=== PATIENT | male | born 1950 | race Caucasian/White ===

== ENCOUNTER 2021-05-12 04:34 | Day surgery (SDC) | payer OTHER, BC ==
[2021-05-11 08:53] VITALS: BMI 33.0
[2021-05-12 08:20] VITALS: TEMP 98
[2021-05-12 09:04] VITALS: BP 142/76; PULSE 67
== END 2021-05-12 09:11 | disposition home or self-care (01) ==
LOC: JASU-ENDO 04:34
PROVIDERS: ATTEND Internal Medicine Gastroenterology
PROC: 0DBL8ZX Excision of Transverse Colon, Via Natural or Artificial Opening Endoscopic, Diagnostic (ICD-10-PCS; 2021-05-12)
PROC: 0DBH8ZX Excision of Cecum, Via Natural or Artificial Opening Endoscopic, Diagnostic (ICD-10-PCS; principal; 2021-05-12 08:00)
DX: Z12.11 Encounter for screening for malignant neoplasm of colon (principal); K57.30 Diverticulosis of large intestine without perforation or abscess without bleeding; D12.0 Benign neoplasm of cecum; D12.3 Benign neoplasm of transverse colon; E11.9 Type 2 diabetes mellitus without complications
CPT/HCPCS: 82962; 88305-TC

== ENCOUNTER 2024-07-24 04:22 | Day surgery (SDC) | payer OTHER, BC ==
[2024-07-23 08:58] VITALS: BMI 33.2
[2024-07-24 09:04] VITALS: TEMP 97.5
[2024-07-24 09:39] VITALS: BP 153/71; PULSE 68; RESP 16
== END 2024-07-24 10:00 | disposition home or self-care (01) ==
LOC: JASU-ENDO 04:22
PROVIDERS: ATTEND Internal Medicine Gastroenterology
PROC: 0DBL8ZX Excision of Transverse Colon, Via Natural or Artificial Opening Endoscopic, Diagnostic (ICD-10-PCS; 2024-07-24)
PROC: 0DBH8ZX Excision of Cecum, Via Natural or Artificial Opening Endoscopic, Diagnostic (ICD-10-PCS; 2024-07-24)
PROC: 3E0H8KZ Introduction of Other Diagnostic Substance into Lower GI, Via Natural or Artificial Opening Endoscopic (ICD-10-PCS; principal; 2024-07-24 08:30)
DX: Z12.11 Encounter for screening for malignant neoplasm of colon (principal); D12.3 Benign neoplasm of transverse colon; D12.0 Benign neoplasm of cecum; D37.4 Neoplasm of uncertain behavior of colon; Z86.010 Personal history of colon polyps; E11.9 Type 2 diabetes mellitus without complications; Z79.84 Long term (current) use of oral hypoglycemic drugs
CPT/HCPCS: 88305-TC

== ENCOUNTER 2024-09-02 04:09 | Inpatient (IN) | payer OTHER, BC ==
[2024-09-01 09:29] VITALS: BMI 30.8
[2024-09-02] MEDS ORDERED: cefOXitin SODIUM 2 GM VIAL (RESTRICTED TO ID) IVPB ONE ×2 (09:24→18:24)
[2024-09-02] MEDS ORDERED: BUPIVACAINE HCL/PF 0.25% (2.5MG/ML) 10 ML VIAL ONE (09:24)
[2024-09-02] MEDS ORDERED: DEXAMETHASONE SOD PHOSPHATE 4 MG/1 ML VIAL ONE (10:52)
[2024-09-02] MEDS: cefOXitin SODIUM 1 GM VIAL (RESTRICTED TO ID) IVPB ONE (10:55)
[2024-09-02] MEDS: BUPIVACAINE HCL/PF 2.5 MG/ML - 30 ML VIAL IJ ONE ×2 (11:00)
[2024-09-02] MEDS ORDERED: ROCURONIUM BROMIDE 50 MG/5 ML SYRINGE ONE (12:10)
[2024-09-02] MEDS ORDERED: ONDANSETRON 4 MG/2 ML VIAL IVPUSH PRN (14:13)
[2024-09-02] MEDS ORDERED: PROMETHAZINE HCL 25 MG/1 ML VIAL IVPB PRN (14:13)
[2024-09-02] MEDS ORDERED: HYDROmorphone HCl 2 MG/ML VIAL ONE (14:24)
[2024-09-02] MEDS ORDERED: ONDANSETRON 4 MG/2 ML VIAL ONE (15:59)
[2024-09-02] MEDS ORDERED: KETOROLAC TROMETHAMINE 30 MG/1 ML VIAL ONE (15:59)
[2024-09-02] MEDS ORDERED: ACETAMINOPHEN INJECTION 100 ML ONE (17:01)
[2024-09-02] MEDS: ACETAMINOPHEN 1000 MG/100 ML BAG IVPB ONE ×2 (17:14→20:39)
[2024-09-02] MEDS: CEFOXITIN SODIUM 2 GM in DEXTROSE 5%-WATER 100 ML IVPB SCH (18:52)
[2024-09-02] MEDS: LACTATED RINGERS SOLUTION 1,000 ML IV SCH (18:58)
[2024-09-02] MEDS: HEPARIN NA (PORCINE) 5,000 UNITS/ML 1ML VIAL SQ ONE (20:39)
[2024-09-02] MEDS: CEFOXITIN SODIUM 2 GM in DEXTROSE 5%-WATER - 100 ML IVPB ONE (20:39)
[2024-09-02] MEDS: ATORVASTATIN CA 10 MG TABLET (FP) PO SCH (21:20)
[2024-09-02] MEDS: PNEUMOC 20-VAL CONJ-DIP CRM/PF 0.5 ML SYRINGE IM ONE (21:20)
[2024-09-02] MEDS: ACETAMINOPHEN 1000 MG/100 ML BAG IVPB SCH (22:03)
[2024-09-02] MEDS: MELATONIN 5 MG TABLETS PO ONE (22:04)
[2024-09-03] MEDS: KETOROLAC TROMETHAMINE 30 MG/1 ML VIAL IVPUSH PRN (01:09)
[2024-09-03 02:31] VITALS: RESP 18
[2024-09-03] MEDS: sitaGLIPtin PHOSPHATE 50 MG TABLET PO SCH (06:09)
[2024-09-03] MEDS: metFORMIN HCL 500 MG TABLET (FP) PO SCH (06:10)
[2024-09-03] MEDS: LISINOPRIL 10 MG TABLET PO SCH (09:34)
[2024-09-03] MEDS: CHOLECALCIFEROL (VIT D3) 400 UNIT (10 MCG) TABLET PO SCH (09:34)
[2024-09-03] MEDS: ENOXAPARIN NA (PORCINE) 40 MG/0.4 ML DISP.SYRIN SQ SCH (09:34)
[2024-09-03 09:51] LABS: BASO % 0.9 % (0-2.0); EOS % 0.2 % (0-4.5); HEMATOCRIT 37.3 % (35.4-49); HEMOGLOBIN 12.8 GM/dL (11.7-16.9); LYMPH % 6.9 % (8-40); MCH 32.5 pg (25.7-33.7); MCHC 34.3 g/dl (32.0-35.9); MEAN CELL VOLUME 94.8 fl (80-96); MEAN PLT VOLUME 9.6 fl (7.5-11.1); PLATELET COUNT 169 10^3/uL (134-434); RBC 3.94 M/mm3 (4.00-5.60); RDW 13.5 % (11.9-15.9); WHITE BLOOD COUNT 9.8 K/mm3 (4.0-10.0)
[2024-09-03 10:13] LABS: POTASSIUM 4.1 mmol/L (3.5-5.1)
[2024-09-03 10:16] LABS: CALCIUM 8.5 mg/dL (8.5-10.1)
[2024-09-03 10:17] LABS: BLOOD UREA NITROGEN 21.1 mg/dL (7-18)
[2024-09-03 10:20] LABS: CREATININE 1.4 mg/dL (0.55-1.3)
[2024-09-03] MEDS: INSULIN ASPART SLIDING SCALE (NOVOLOG) 1 VIAL SQ SCH (12:07)
[2024-09-03] MEDS: ONDANSETRON 4 MG/2 ML VIAL IVPB PRN (15:54)
[2024-09-03] MEDS: METOCLOPRAMIDE HCL INJECTION 10 MG/2 ML VIAL IVPUSH ONE (18:27)
[2024-09-03] MEDS: MELATONIN 5 MG TABLETS PO PRN (22:29)
[2024-09-04] MEDS: ICOSAPENT ETHYL 0.5 GM PO SCH (04:49)
[2024-09-04] MEDS: oxyCODONE HCL 5 MG TABLET PO PRN ×2 (06:42→21:56)
[2024-09-04 09:31] LABS: BASO % 0.6 % (0-2.0); EOS % 1.8 % (0-4.5); HEMATOCRIT 40.8 % (35.4-49); HEMOGLOBIN 13.6 GM/dL (11.7-16.9); LYMPH % 7.8 % (8-40); MCH 31.5 pg (25.7-33.7); MCHC 33.3 g/dl (32.0-35.9); MEAN CELL VOLUME 94.7 fl (80-96); MEAN PLT VOLUME 9.3 fl (7.5-11.1); MONO % 6.5 % (3.8-10.2); NEUT % 83.3 % (42.8-82.8); PLATELET COUNT 188 10^3/uL (134-434); RBC 4.31 M/mm3 (4.00-5.60); RDW 13.7 % (11.9-15.9); WHITE BLOOD COUNT 13.1 K/mm3 (4.0-10.0)
[2024-09-04 09:44] LABS: POTASSIUM 3.8 mmol/L (3.5-5.1)
[2024-09-04 09:49] LABS: ALBUMIN 3.1 g/dl (3.4-5.0); BLOOD UREA NITROGEN 9.3 mg/dL (7-18); CALCIUM 9.2 mg/dL (8.5-10.1)
[2024-09-04 09:50] LABS: MAGNESIUM 1.6 mg/dL (1.8-2.4)
[2024-09-04 09:51] LABS: BILIRUBIN,TOTAL 0.7 mg/dL (0.2-1)
[2024-09-04 09:53] LABS: CREATININE 1.1 mg/dL (0.55-1.3)
[2024-09-04 09:54] LABS: TOT PROT 6.1 g/dl (6.4-8.2)
[2024-09-04] MEDS: MAGNESIUM SULFATE IN WATER 2 GM/50 ML IVPB IVPB ONE (10:39)
[2024-09-04] MEDS: ACETAMINOPHEN 500 MG TABLET (FP) PO PRN (10:40)
[2024-09-04] MEDS ORDERED: INSULIN ASPART SLIDING SCALE (NOVOLOG) 1 VIAL SQ ONE (12:29)
[2024-09-05 03:57] VITALS: PULSE 75
[2024-09-05 06:53] VITALS: BP 124/73; TEMP 98.6
[2024-09-05 10:08] LABS: BASO % 0.7 % (0-2.0); EOS % 2.9 % (0-4.5); HEMOGLOBIN 13.5 GM/dL (11.7-16.9); LYMPH % 10.5 % (8-40); MCH 32.4 pg (25.7-33.7); MCHC 34.6 g/dl (32.0-35.9); MEAN CELL VOLUME 93.6 fl (80-96); MEAN PLT VOLUME 9.3 fl (7.5-11.1); MONO % 7.6 % (3.8-10.2); NEUT % 78.3 % (42.8-82.8); PLATELET COUNT 191 10^3/uL (134-434); RBC 4.16 M/mm3 (4.00-5.60); RDW 13.9 % (11.9-15.9); WHITE BLOOD COUNT 11.6 K/mm3 (4.0-10.0)
[2024-09-05 10:16] LABS: POTASSIUM 3.8 mmol/L (3.5-5.1)
[2024-09-05 10:18] LABS: ALBUMIN 2.6 g/dl (3.4-5.0); CALCIUM 8.6 mg/dL (8.5-10.1)
[2024-09-05 10:19] LABS: BLOOD UREA NITROGEN 15.4 mg/dL (7-18); MAGNESIUM 1.6 mg/dL (1.8-2.4)
[2024-09-05 10:23] LABS: BILIRUBIN,TOTAL 0.7 mg/dL (0.2-1)
[2024-09-05 10:24] LABS: TOT PROT 5.5 g/dl (6.4-8.2)
[2024-09-05] MEDS: MAGNESIUM SULFATE IN WATER 2 GM/50 ML IVPB IVPB ONE (10:52)
== END 2024-09-05 11:57 | disposition home or self-care (01) | DRG 331 ==
LOC: J2C 04:09 → J8W 20:18
PROVIDERS: ADMIT Internal Medicine; ATTEND Nurse Practitioner Acute Care
PROC: 8E0W4CZ Robotic Assisted Procedure of Trunk Region, Percutaneous Endoscopic Approach (ICD-10-PCS; 2024-09-02)
PROC: 0DTF4ZZ Resection of Right Large Intestine, Percutaneous Endoscopic Approach (ICD-10-PCS; principal; 2024-09-02 11:00)
DX: D12.0 Benign neoplasm of cecum (principal); I10 Essential (primary) hypertension; E11.9 Type 2 diabetes mellitus without complications; E78.5 Hyperlipidemia, unspecified; K63.89 Other specified diseases of intestine; K57.30 Diverticulosis of large intestine without perforation or abscess without bleeding; E66.9 Obesity, unspecified; Z68.31 Body mass index [BMI] 31.0-31.9, adult
CPT/HCPCS: 36415; 80048; 80053; 82962; 83735; 85025; 86140; 86850; 86900; 86901; 88307-TC; 88309-TC; 88329; 90677; 94760; 97116-GP; 97161-GP; G0009; J0131

== ENCOUNTER 2024-09-06 06:34 | Inpatient (IN) | payer OTHER, BC ==
[2024-09-06 06:46] VITALS: BMI 31.5
[2024-09-06] MEDS ORDERED: MORPHINE SULFATE 2 MG/ML SYRINGE ONE (07:52)
[2024-09-06] MEDS: morphine CARPU-JECT 2 MG/1 ML DISP.SYRIN IVPUSH ONE (08:00)
[2024-09-06 08:10] LABS: VENOUS BASE EXCESS 4.8 mmol/L (-2-2); VENOUS O2 SATURATION 58.2 % (70-80); VENOUS PCO2 45.1 mmHg (38-52); VENOUS PH 7.439 (7.310-7.410)
[2024-09-06 08:24] LABS: BASO % 0.5 % (0-2.0); EOS % 0.1 % (0-4.5); HEMATOCRIT 44.1 % (35.4-49); HEMOGLOBIN 14.9 GM/dL (11.7-16.9); MCHC 33.8 g/dl (32.0-35.9); MEAN CELL VOLUME 94.9 fl (80-96); MEAN PLT VOLUME 9.2 fl (7.5-11.1); MONO % 6.5 % (3.8-10.2); NEUT % 86.9 % (42.8-82.8); PLATELET COUNT 247 10^3/uL (134-434); RBC 4.65 M/mm3 (4.00-5.60); RDW 13.9 % (11.9-15.9)
[2024-09-06 08:27] LABS: POTASSIUM 3.9 mmol/L (3.5-5.1)
[2024-09-06 08:30] LABS: BLOOD UREA NITROGEN 21.5 mg/dL (7-18); MAGNESIUM 1.7 mg/dL (1.8-2.4)
[2024-09-06 08:33] LABS: CREATININE 1.2 mg/dL (0.55-1.3)
[2024-09-06 08:34] LABS: BILIRUBIN,TOTAL 0.7 mg/dL (0.2-1); TOT PROT 6.8 g/dl (6.4-8.2)
[2024-09-06 08:35] LABS: ALBUMIN 3.1 g/dl (3.4-5.0); CALCIUM 10.1 mg/dL (8.5-10.1)
[2024-09-06 08:41] LABS: LACTIC ACID 2.2 mmol/L (0.4-2.0)
[2024-09-06 08:53] LABS: INR 1.07 (0.83-1.09); PROTHROMBIN TIME (PATIENT) 12.3 SEC (9.7-13.0)
[2024-09-06 08:56] LABS: ACTIVATED PTT 30.3 SECONDS (25.2-36.5)
[2024-09-06] MEDS ORDERED: morphine SULFATE 4 MG/ML VIAL ONE (09:29)
[2024-09-06] MEDS ORDERED: ONDANSETRON 4 MG/2 ML VIAL ONE (09:34)
[2024-09-06] MEDS: morphine CARPU-JECT 4 MG/1 ML DISP.SYRIN IVPUSH ONE (09:40)
[2024-09-06] MEDS: ONDANSETRON 4 MG/2 ML VIAL IVPUSH ONE (09:42)
[2024-09-06 10:02] LABS: N-TERMINAL BNP 87.7 pg/ml (5-450)
[2024-09-06] MEDS ORDERED: LIDOCAINE HCL 2% JELLY 11 ML TP ONE (11:11)
[2024-09-06] MEDS: LIDOCAINE HCL 2% JELLY 10 ML CARTRIDGE PR ONE (11:32)
[2024-09-06] MEDS: LACTATED RINGERS SOLUTION 1,000 ML/1,000 ML INFUS.BAG IV SCH ×2 (12:15→12:31)
[2024-09-06] MEDS: ACETAMINOPHEN 1000 MG/100 ML BAG IVPB ONE (12:31)
[2024-09-07] MEDS ORDERED: ACETAMINOPHEN 1000 MG/100 ML BAG IVPB PRN (07:59)
[2024-09-07 10:04] LABS: BASO % 0.5 % (0-2.0); EOS % 1.5 % (0-4.5); HEMATOCRIT 36.9 % (35.4-49); HEMOGLOBIN 12.8 GM/dL (11.7-16.9); LYMPH % 14.3 % (8-40); MCH 32.3 pg (25.7-33.7); MCHC 34.8 g/dl (32.0-35.9); MEAN PLT VOLUME 8.8 fl (7.5-11.1); MONO % 10.6 % (3.8-10.2); NEUT % 73.1 % (42.8-82.8); PLATELET COUNT 222 10^3/uL (134-434); RBC 3.97 M/mm3 (4.00-5.60); RDW 13.6 % (11.9-15.9); WHITE BLOOD COUNT 7.7 K/mm3 (4.0-10.0)
[2024-09-07 10:14] LABS: POTASSIUM 3.5 mmol/L (3.5-5.1)
[2024-09-07 10:23] LABS: CALCIUM 8.8 mg/dL (8.5-10.1)
[2024-09-07] MEDS: LACTATED RINGERS SOLUTION 1,000 ML/1,000 ML INFUS.BAG IV SCH (10:50)
[2024-09-07] MEDS: PANTOPRAZOLE SODIUM 40 MG VIAL IVPUSH SCH (15:38)
[2024-09-07 19:14] LABS: BASO % 0.4 % (0-2.0); EOS % 0.8 % (0-4.5); HEMATOCRIT 37.5 % (35.4-49); HEMOGLOBIN 12.7 GM/dL (11.7-16.9); LYMPH % 12.4 % (8-40); MCHC 33.9 g/dl (32.0-35.9); MEAN CELL VOLUME 94.5 fl (80-96); MEAN PLT VOLUME 8.5 fl (7.5-11.1); MONO % 11.3 % (3.8-10.2); NEUT % 75.1 % (42.8-82.8); PLATELET COUNT 232 10^3/uL (134-434); RBC 3.97 M/mm3 (4.00-5.60); RDW 13.6 % (11.9-15.9); WHITE BLOOD COUNT 8.8 K/mm3 (4.0-10.0)
[2024-09-08 08:50] LABS: BASO % 0.7 % (0-2.0); EOS % 1.2 % (0-4.5); HEMATOCRIT 37.1 % (35.4-49); HEMOGLOBIN 12.4 GM/dL (11.7-16.9); LYMPH % 12.5 % (8-40); MCH 31.3 pg (25.7-33.7); MCHC 33.5 g/dl (32.0-35.9); MEAN CELL VOLUME 93.5 fl (80-96); MEAN PLT VOLUME 8.7 fl (7.5-11.1); MONO % 9.7 % (3.8-10.2); NEUT % 75.9 % (42.8-82.8); PLATELET COUNT 245 10^3/uL (134-434); RBC 3.97 M/mm3 (4.00-5.60); RDW 13.7 % (11.9-15.9); WHITE BLOOD COUNT 11.1 K/mm3 (4.0-10.0)
[2024-09-08 09:00] LABS: INR 1.13 (0.83-1.09)
[2024-09-08 09:15] LABS: POTASSIUM 3.5 mmol/L (3.5-5.1)
[2024-09-08 09:21] LABS: ALBUMIN 2.6 g/dl (3.4-5.0); BLOOD UREA NITROGEN 25.1 mg/dL (7-18); CALCIUM 8.8 mg/dL (8.5-10.1)
[2024-09-08 09:22] LABS: MAGNESIUM 1.8 mg/dL (1.8-2.4)
[2024-09-08 09:24] LABS: BILIRUBIN,TOTAL 0.6 mg/dL (0.2-1); TOT PROT 5.7 g/dl (6.4-8.2)
[2024-09-08] MEDS ORDERED: ENOXAPARIN NA (PORCINE) 40 MG/0.4 ML DISP.SYRIN SQ SCH (10:00)
[2024-09-08] MEDS ORDERED: HEPARIN NA (PORCINE) 5,000 UNITS/ML 1ML VIAL SQ SCH (10:00)
[2024-09-08] MEDS: LISINOPRIL 10 MG TABLET PO SCH (10:13)
[2024-09-08] MEDS: ATORVASTATIN CA 10 MG TABLET (FP) PO SCH (21:59)
[2024-09-08 22:05] VITALS: RESP 18
[2024-09-08] MEDS: MELATONIN 5 MG TABLETS PO ONE (23:55)
[2024-09-09 10:20] LABS: HEMATOCRIT 36.6 % (35.4-49); HEMOGLOBIN 12.3 GM/dL (11.7-16.9); MCH 31.6 pg (25.7-33.7); MCHC 33.7 g/dl (32.0-35.9); MEAN CELL VOLUME 93.8 fl (80-96); MEAN PLT VOLUME 8.6 fl (7.5-11.1); PLATELET COUNT 260 10^3/uL (134-434); RDW 13.3 % (11.9-15.9); WHITE BLOOD COUNT 9.8 K/mm3 (4.0-10.0)
[2024-09-09 10:36] LABS: POTASSIUM 3.6 mmol/L (3.5-5.1)
[2024-09-09 10:39] LABS: BLOOD UREA NITROGEN 25.8 mg/dL (7-18); CALCIUM 8.3 mg/dL (8.5-10.1); MAGNESIUM 1.8 mg/dL (1.8-2.4)
[2024-09-09 10:43] LABS: PHOSPHOROUS 2.9 mg/dL (2.5-4.9)
[2024-09-09 11:23] VITALS: BP 137/62; PULSE 62; TEMP 98.4
[2024-09-09] MEDS ORDERED: MELATONIN 5 MG TABLETS PO PRN (22:00)
== END 2024-09-09 13:49 | disposition home or self-care (01) | DRG 394 ==
LOC: JER 06:34 → JERBED 11:30 → J5S 18:29
PROVIDERS: ADMIT Internal Medicine
DX: K91.89 Other postprocedural complications and disorders of digestive system (principal); K56.690 Other partial intestinal obstruction; R11.2 Nausea with vomiting, unspecified; D12.6 Benign neoplasm of colon, unspecified; E78.00 Pure hypercholesterolemia, unspecified; E78.5 Hyperlipidemia, unspecified; E11.9 Type 2 diabetes mellitus without complications
CPT/HCPCS: 0241U-QW; 36415; 71045-TC-FY; 71275-TC; 74018-TC-FY; 74177-TC; 80048; 80053; 82010; 82803; 82962; 83605; 83690; 83735; 83880; 84100; 84484; 85025; 85027; 85610; 85730; 86140; 86850; 86900; 86901; 87040; 93005; 93010; 93306-TC; 99291